=== PATIENT | male | born 1970 | race Caucasian/White ===

== ENCOUNTER 2020-06-29 10:24 | Emergency (ER) | payer OTHER ==
--- NOTE | 2020-06-29 12:11 | RAD ---
RIGHT KNEE 4 VIEWS: Date: 06/29/2020 HISTORY: Fall with injury and pain to right knee. FINDINGS: Joint spaces are preserved. Very mild degenerative changes are noted. There is prepatellar soft tissu e fullness suggesting edema. No evidence of significant joint effusion. No fracture or acute abnormal ity. IMPRESSION: No acute osseous abnormality. Prepatellar soft tissue prominence. POS: AH
== END 2020-06-29 11:50 | disposition still patient (30) ==
LOC: NAV ERS 10:24
DX: M25.461 Effusion, right knee (principal); Z87.891 Personal history of nicotine dependence; Z79.1 Long term (current) use of non-steroidal anti-inflammatories (NSAID)